=== PATIENT | female | born 1950 | race American Indian/Alaskan Native ===

== ENCOUNTER 2019-04-16 11:11 | Emergency (ER) | payer MEDICARE ==
[2019-04-16] MEDS ORDERED: NACL 0.9% 1000 ML 1,000 ML IV ONE (11:30)
[2019-04-16] MEDS ORDERED: BABY ASPIRIN PO ONE (11:30)
--- NOTE | 2019-04-16 11:35 | Emergency Department Report ---
ED General Adult HPI - General Chief complaint: Abdominal Pain Stated complaint: CHEST/ABD PAIN/LOSS OF APPETITE/NAUSEA Time Seen by Provider: 04/16/19 11:29 Source: EMS Mode of arrival: Stretcher Limitations: No Limitations - History of Present Illness Initial comments: Patient is 68-year-old female with history of congestive heart failure, hypertension and panic attack. Patient presented to the ER via EMS complaining of nausea vomiting, abdominal pain and chest pain for the last 6 week. Patient stated that pain is on and off but it's become worse since last night. Patient denied any fever or chills. Patient is also complaining of cough, nonp roductive. She also complaining of mild shortness of breath. Patient stated that she is not feeling well at all. - Related Data Home Medications Medication Instructions Recorded Confirmed Last Taken Dexlansoprazole (Nf) [Dexilant 60 mg PO BID 06/17/16 06/17/16 Unknown (Nf)] Meclizine [Antivert] 25 mg PO TID PRN 06/17/16 06/17/16 Unknown methOCARBAMOL [Robaxin TAB] 750 mg PO BID 06/17/16 06/17/16 Unknown ALBUTEROL Inhaler (OR & NICU) 1 puff PO DAILY PRN 06/18/16 06/18/16 Unknown [ProAir HFA Inhaler] Amitriptyline 50 mg PO DAILY 06/18/16 06/18/16 Unknown Cyclobenzaprine [Flexeril 10 MG 10 mg PO TID PRN 06/18/16 06/18/16 Unknown TAB] Ferrous Sulfate [Feosol 325 MG tab] 325 mg PO BID 06/18/16 06/18/16 Unknown Loratadine 10 mg PO DAILY 06/18/16 06/18/16 Unknown Omeprazole 40 mg PO DAILY 06/18/16 06/18/16 Unknown diazePAM [Diazepam] 10 mg PO BID PRN 06/18/16 06/18/16 Unknown Previous Rx's Medication Instructions Recorded Last Taken Type Atenolol/Chlorthalidone [Tenoretic 1 tab PO QDAY #30 tablet 06/21/16 Unknown Rx 50-25] Clindamycin [Clindamycin CAP] 600 mg PO BID #16 capsule 06/21/16 Unknown Rx Furosemide [Lasix TAB] 40 mg PO DAILY #30 tablet 06/21/16 Unknown Rx Gabapentin [Neurontin] 600 mg PO QHS #30 tablet 06/21/16 Unknown Rx Oxycodone HCl/Acetaminophen 1 each PO Q8HR PRN #20 tablet 06/21/16 Unknown Rx [Percocet 10/325 mg] Potassium Chloride [Klor-Con 10] 20 meq PO DAILY #60 tablet.er 06/21/16 Unknown Rx Pravastatin Sodium 20 mg PO DAILY #30 06/21/16 Unknown Rx Allergies Allergy/AdvReac Type Severity Reaction Status Date / Time No Known Drug Allergies Allergy n/a Unverified 06/18/16 17:40 ED Review of Systems ROS: Stated complaint: CHEST/ABD PAIN/LOSS OF APPETITE/NAUSEA Other details as noted in HPI Comment: All other systems reviewed and negative Constitutional: chills. denies: fever Respiratory: cough, shortness of breath. denies: SOB with exertion, SOB at rest, wheezing Cardiovascular: denies: chest pain, palpitations Gastrointestinal: nausea, vomiting. denies: abdominal pain, diarrhea, constipation, hematemesis, melena, hematochezia Musculoskeletal: denies: back pain Neurological: denies: headache, weakness, numbness, paresthesias ED Past Medical Hx - Past Medical History Hx Congestive Heart Failure: Yes Hx Arthritis: Yes Hx Psychiatric Treatment: Yes (anxiety, panic attacks) Additional medical history: bronchitis, tumors in back. - Surgical History Additional Surgical History: hysterectomy - Social History Smoking Status: Never Smoker Substance Use Type: None - Medications Home Medications: Home Medications Medication Instructions Recorded Confirmed Last Taken Type Dexlansoprazole Dr Ma) [Dexilant 60 mg PO BID 06/17/16 06/17/16 Unknown History (Nf)] Meclizine [Antivert] 25 mg PO TID PRN 06/17/16 06/17/16 Unknown History methOCARBAMOL [Robaxin TAB] 750 mg PO BID 06/17/16 06/17/16 Unknown History ALBUTEROL Inhaler (OR & NICU) 1 puff PO DAILY PRN 06/18/16 06/18/16 Unknown History [ProAir HFA Inhaler] Amitriptyline 50 mg PO DAILY 06/18/16 06/18/16 Unknown History Cyclobenzaprine [Flexeril 10 MG 10 mg PO TID PRN 06/18/16 06/18/16 Unknown History TAB] Ferrous Sulfate [Feosol 325 MG tab] 325 mg PO BID 06/18/16 06/18/16 Unknown History Loratadine 10 mg PO DAILY 06/18/16 06/18/16 Unknown History Omeprazole 40 mg PO DAILY 06/18/16 06/18/16 Unknown History diazePAM [Diazepam] 10 mg PO BID PRN 06/18/16 06/18/16 Unknown History Atenolol/Chlorthalidone [Tenoretic 1 tab PO QDAY #30 tablet 06/21/16 Unknown Rx 50-25] Clindamycin [Clindamycin CAP] 600 mg PO BID #16 capsule 06/21/16 Unknown Rx Furosemide [Lasix TAB] 40 mg PO DAILY #30 tablet 06/21/16 Unknown Rx Gabapentin [Neurontin] 600 mg PO QHS #30 tablet 06/21/16 Unknown Rx Oxycodone HCl/Acetaminophen 1 each PO Q8HR PRN #20 tablet 06/21/16 Unknown Rx [Percocet 10/325 mg] Potassium Chloride [Klor-Con 10] 20 meq PO DAILY #60 tablet.er 06/21/16 Unknown Rx Pravastatin Sodium 20 mg PO DAILY #30 06/21/16 Unknown Rx ED Physical Exam - General Limitations: No Limitations General appearance: alert, in no apparent distress - Head Head exam: Present: atraumatic, normocephalic, normal inspection - Eye Eye exam: Present: normal appearance, PERRL - ENT ENT exam: Present: mucous membranes dry - Neck Neck exam: Present: normal inspection, full ROM. Absent: tenderness, meningismus, lymphadenopathy, thyromegaly - Respiratory Respiratory exam: Present: normal lung sounds bilaterally - Cardiovascular Cardiovascular Exam: Present: tachycardia, normal heart sounds. Absent: systolic murmur, diastolic murmur, rubs, gallop - GI/Abdominal GI/Abdominal exam: Present: soft, normal bowel sounds. Absent: distended, tenderness, guarding, rebound, rigid, organomegaly, mass, bruit, pulsatile mass, hernia - Extremities Exam Extremities exam: Present: normal inspection, full ROM, normal capillary refill - Back Exam Back exam: Present: normal inspection, full ROM. Absent: tenderness, CVA tende rness (R), CVA tenderness (L), muscle spasm, paraspinal tenderness, vertebral tenderness - Neurological Exam Neurological exam: Present: alert, oriented X3, CN II-XII intact, normal gait, reflexes normal - Psychiatric Psychiatric exam: Present: normal mood - Skin Skin exam: Present: warm, intact, normal color ED Course Vital Signs 04/16/19 04/16/19 11:22 15:09 Temperature 98.0 F Pulse Rate 102 H 87 Respiratory 96 H 18 Rate Blood Pressure 136/84 Blood Pressure 199/122 [Left] O2 Sat by Pulse 100 Oximetry ED Medical Decision Making - Lab Data Result diagrams: 04/16/19 Unknown 04/16/19 Unknown - EKG Data -: EKG Interpreted by Me EKG shows normal: sinus rhythm Rate: tachycardia - EKG Data Interpretation: no acute changes - Radiology Data Radiology results: report reviewed - Medical Decision Making Patient is 68-year-old female with history of congestive heart failure, hypertension and panic attack. Patient presented to the ER via EMS complaining of nausea vomiting, abdominal pain and chest pain for the last 6 week. Patient stated that pain is on and off but it's become worse since last night. Patient denied any fever or chills. Patient is also complaining of cough, nonproductive. She also complaining of mild shortness of breath. Patient stated that she is not feeling well at all. CT abdomen and pelvis with IV contrast showed 8 cm mass in the fundus of the stomach. I discussed the patient is Dr. Keys, surgeon. He advised that patient would need a pain control and outpatient referral to surgical oncology. Patient and family informed about the CT abdomen and pelvis finding and the need to follow-up with surgical oncology in the next 2-3 days. Patient also advised to return to the ER if symptoms are not improved. I discussed the patient with Dr. David Padilla, primary care physician and the patient, informed about the patient a CT abdomen and pelvis results in the recommendation of Dr. Keys to follow-up with surgical oncology. Dr. Padilla stated that he will sit up that appointment with surgical oncology for all. Patient advised to follow-up with Dr. Padilla in the next 2-3 days and also advised to return to the ER if symptoms are not improved. Critical care attestation.: If time is entered above; I have spent that time in minutes in the direct care of this critically ill patient, excluding procedure time. ED Disposition Clinical Impression: Gastric mass, Abdominal pain Disposition: - TO HOME OR SELFCARE Is pt being admited?: No Condition: Stable Instructions: Abdominal Pain (ED) Referrals: DAVID PADILLA MD [Primary Care Provider] - 3-5 Days
--- NOTE | 2019-04-16 12:03 | XRay Report ---
CHEST 1 VIEW INDICATION: Chest Pain. COMPARISON: 06/17/2016 FINDINGS: Support devices: None. Heart: Within normal limits. Pulmonary vasculature: Normal. Lungs/Pleura: Clear/No pleural effusion. Additional findings: Numerous old right rib fractures with bridging callus. IMPRESSION: No acute cardiopulmonary process. Signer Name: Charles Bustos MD Signed: 04/16/2019 11:59 AM Workstation Name: [id number]
[2019-04-16 12:04] LABS: Basophils # (Auto) 0.1 K/mm3 (0.0-0.1); Basophils % (Auto) 0.9 % (0.0-1.8); Eosinophils # (Auto) 0.1 K/mm3 (0.0-0.4); Eosinophils % (Auto) 1.1 % (0.0-4.3); Hematocrit 37.9 % (30.3-42.9); Hemoglobin 12.6 gm/dl (10.1-14.3); Lymphocytes # (Auto) 2.7 K/mm3 (1.2-5.4); Lymphocytes % (Auto) 21.3 % (13.4-35.0); Mean Corpuscular HGB Conc 33 % (30-34); Mean Corpuscular Volume 91 fl (79-97); Monocytes # (Auto) 0.6 K/mm3 (0.0-0.8); Monocytes % (Auto) 5.1 % (0.0-7.3); Platelet Count 288 K/mm3 (140-440); Red Blood Count 4.18 M/mm3 (3.65-5.03); Red Cell Distribution Width 13.4 % (13.2-15.2)
[2019-04-16 12:17] LABS: INR 1.17 (0.87-1.13); Partial Thromboplastin Time 28.1 Sec. (24.2-36.6)
[2019-04-16 12:25] LABS: BUN/Creatinine Ratio 14; Blood Urea Nitrogen 10 mg/dL (7-17); Calcium 10.5 mg/dL (8.4-10.2); Hemolysis Index 28
[2019-04-16 12:28] LABS: Alanine Aminotransferase 5 units/L (7-56); Albumin 3.7 g/dL (3.9-5)
[2019-04-16 12:37] LABS: Bilirubin,Direct < 0.2 mg/dL (0-0.2)
[2019-04-16] MEDS ORDERED: ZOFRAN IV ONE (13:01)
[2019-04-16] MEDS ORDERED: ZOFRAN ONE (13:02)
[2019-04-16] MEDS ORDERED: PROTONIX IV ONE (13:02)
[2019-04-16] MEDS: PROTONIX IV SCH ×2 (13:25→14:36)
--- NOTE | 2019-04-16 14:52 | Cat Scan Report ---
CT ABDOMEN AND PELVIS WITH CONTRAST HISTORY: abdominal pain COMPARISON: None TECHNIQUE: Routine abdominal and pelvic CT exam performed CONTRAST: 100 mL Omnipaque 300.No oral contrast was given. FINDINGS: CT ABDOMEN: Lung Bases: Clear. Liver: Normal. Biliary: Normal gallbladder and bile ducts. Stomach: A relatively smooth capsulated mass arising from the medial gastric fundus measures approxim ately 6.6 cm transverse dimension by 8.2 cm AP dimension by 4.4 cm craniocaudal dimension. A branch v essel of the celiac trunk is identified at the margin of the mass. No gastric obstruction. Duodenum: Normal. Surgical clips at the posterior aspect of the second portion of the duodenum. Spleen: No significant abnormality. Unenlarged. Pancreas: Normal. Adrenals: No significant abnormality. Kidneys: A 9 mm nonobstructive right lower pole renal calculus and a nonobstructive 5 mm calculus in the right renal pelvis. No hydronephrosis. The left kidney is normal. Lymphatics: No lymphadenopathy. Vasculature: No significant abnormality. Bowel/Peritoneum: No significant abnormality. No free air. No free fluid. Appendix not visualized. No pericecal inflammation. CT PELVIC: : Normal urinary bladder.. Status post hysterectomy. Normal small ovaries. No adnexal mass or free fluid. The rectum and sigmoid colon. Osseous Structures: Old healed right rib fractures. No suspicious bone lesion. Additional Findings: 3 prominent phleboliths in the right ovarian vein. No ovarian vein thrombosis. IMPRESSION: 1. A nonobstructive 9 mm right lower pole renal calculus and a nonobstructive 5 mm right renal pelvis calculus. 2. No signs of pyelonephritis or pyonephrosis. 3. An 8 cm mass of the medial gastric fundus. 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 4. No cholelithiasis, no acute cholecystitis and no pancreatitis. 5. Normal pelvis status post hysterectomy. Signer Name: Charles Bustos MD Signed: 04/16/2019 2:47 PM Workstation Name: [id number]
[2019-04-16 15:29] LABS: Bilirubin,Urine NEG (Negative); Blood,Urine LG (Negative); Mucus,Urine 1+ /HPF
[2019-04-16 15:31] LABS: RBC,Urine > 182.0 /HPF (0.0-6.0)
[2019-04-16 15:32] LABS: Color,Urine Amber (Yellow)
[2019-04-16] MEDS ORDERED: MORPHINE IV ONE ×2 (15:42→17:40)
[2019-04-16] MEDS: KCL 10MEQ/100ML 10 MEQ/100 ML BAG IV SCH ×2 (15:52→17:20)
[2019-04-16] MEDS ORDERED: ZOSYN/NS 3.375GM/50ML 3.375 GM/50 ML BAG IV ONE (16:43)
[2019-04-16 18:29] VITALS: BP 123/69
== END 2019-04-16 18:28 | disposition home or self-care (01) ==
LOC: ED 11:11
DX: N20.0 Calculus of kidney (principal); R19.00 Intra-abdominal and pelvic swelling, mass and lump, unspecified site; R10.9 Unspecified abdominal pain; I11.0 Hypertensive heart disease with heart failure; I50.9 Heart failure, unspecified; M19.90 Unspecified osteoarthritis, unspecified site; F41.9 Anxiety disorder, unspecified; Z79.899 Other long term (current) drug therapy; Z88.1 Allergy status to other antibiotic agents; Z88.6 Allergy status to analgesic agent; Z88.8 Allergy status to other drugs, medicaments and biological substances
CPT/HCPCS: 36415; 71045; 74177; 80048; 80076; 81001; 83690; 83880; 84484; 85025; 85610; 85730; 87040; 87086; 93005; 93010; 96361; 96365; 96375; 96376; 99285; C9113; J2270; J2405; J2543; J3480; Q9967